=== PATIENT | male | born 1945 | race Caucasian/White ===

== ENCOUNTER → 2016-08-29 | Day surgery (SDC) | payer MEDICARE, BC ==
[~2016-08-29] MED LIST: Lactated Ringers 1,000 ML IV SCH; Midazolam 1 MG/ML 2 ML SDV ONE; Propofol 200 MG/20 ML SDV ONE; fentaNYL 100 MCG/2 ML SDV ONE
[2016-08-29 11:13] VITALS: BP 141/68
--- NOTE | 2016-08-31 10:20 | OR ---
DATE OF PROCEDURE: 08/29/2016 PREOPERATIVE DIAGNOSIS: Colon cancer screening. POSTOPERATIVE DIAGNOSIS: Diverticulosis. PROCEDURE: Colonoscopy to the cecum. ANESTHESIA: IV anesthesia with monitored anesthesia care. INDICATIONS: This 71-year-old white male is referred for a colonoscopy for colon cancer screening. He says his last colonoscopic exam was done ten years ago. I counseled him for the procedure including risks and alternatives, and he gave his informed consent to proceed. DESCRIPTION OF OPERATION: The patient was placed in the left lateral decubitus position. IV anesthesia was administered by the Anesthesia Service. Time-out was held. A rectal exam was performed, which was unremarkable. The flexible video Olympus colonoscope was introduced through his anus, up his rectum, and out his colon all way to the cecum. En route, we saw a few scattered left-sided diverticula. There was no bleeding or inflammation associated with them. Once the cecum was reached, the scope was slowly withdrawn, examining the mucosa throughout. No additional mucosal abnormalities were noted. The scope was retroflexed in the rectum with the distal rectum being unremarkable. The scope was straightened and removed. He tolerated the procedure well. Ismael López MD /[id number] [facility]
== END ==
LOC: JP.SDS 08:00
PROVIDERS: ATTEND Surgery
DX: Z12.11 Encounter for screening for malignant neoplasm of colon (principal); K57.30 Diverticulosis of large intestine without perforation or abscess without bleeding; K21.9 Gastro-esophageal reflux disease without esophagitis; I10 Essential (primary) hypertension; E78.00 Pure hypercholesterolemia, unspecified; E11.9 Type 2 diabetes mellitus without complications; Z79.899 Other long term (current) drug therapy; Z88.8 Allergy status to other drugs, medicaments and biological substances; Z98.890 Other specified postprocedural states; Z98.52 Vasectomy status; D64.9 Anemia, unspecified
CPT/HCPCS: G0121; J2250; J2704; J3010; J7120

== ENCOUNTER 2023-03-08 11:35 | Emergency (ER) | payer MEDICARE ==
[2023-03-08 13:12] LABS: APPEARANCE,URINE SLIGHTLY CLOUDY (CLEAR); BILIRUBIN,URINE NEGATIVE (NEGATIVE); COLOR,URINE YELLOW (YELLOW); GLUCOSE,URINE 250 mg/dL (NEGATIVE); KETONES,URINE 15 mg/dL (NEGATIVE); LEUKOCYTE ESTERASE,URINE NEGATIVE (NEGATIVE); NITRITE,URINE NEGATIVE (NEGATIVE); OCCULT BLOOD,URINE MODERATE (NEGATIVE); PROTEIN,URINE 30 mg/dL (NEGATIVE); UROBILINOGEN,URINE 0.2 EU/dL (0.2-1.0)
[2023-03-08 13:15] LABS: AMORPHOUS SEDIMENT,URINE FEW; BACTERIA,URINE RARE; EPITHELIAL CELLS,URINE RARE; MUCUS,URINE MODERATE; WBC,URINE 0-5 (0-5)
[2023-03-08] MEDS ORDERED: Sodium Chloride 0.9% 500 ML IV ONE (13:23)
[2023-03-08] MEDS ORDERED: Ketorolac 30 MG/ML SDV IVPUSH ONE (13:23)
[2023-03-08] MEDS ORDERED: Ondansetron 4 MG/2 ML SDV IVPUSH ONE (13:23)
[2023-03-08 13:45] LABS: BASOPHILS ABSOLUTE AUTO 0.04 K/uL (0.00-0.10); BASOPHILS PERCENT AUTO 0.3 % (0.1-1.3); EOSINOPHILS PERCENT AUTO 0.2 % (0.0-5.4); HEMOGLOBIN 14.8 g/dL (12.9-16.9); IMMATURE GRAN ABSOLUTE AUTO 0.05 K/uL (0.00-0.23); IMMATURE GRAN PERCENT AUTO 0.4 % (0.0-0.7); LYMPHOCYTES ABSOLUTE AUTO 0.97 K/uL (0.8-3.3); LYMPHOCYTES PERCENT AUTO 8.2 % (11.4-47.7); MEAN CORPUSCULAR HEMOGLOBIN 29.8 pg (31.6-35.5); MEAN CORPUSCULAR HGB CONC 34.4 g/dL (31.6-35.5); MEAN CORPUSCULAR VOLUME 86.7 fL (81.4-99.0); MONOCYTES ABSOLUTE AUTO 0.66 K/uL (0.20-0.90); MONOCYTES PERCENT AUTO 5.6 % (3.3-12.6); NEUTROPHILS ABSOLUTE AUTO 10.11 K/uL (1.0-7.6); NEUTROPHILS PERCENT AUTO 85.3 % (40.0-78.1); PLATELET COUNT,PLT 248 K/uL (130-375); RED BLOOD CELL COUNT 4.96 M/uL (4.14-5.76); WHITE BLOOD CELL COUNT,WBC 11.9 K/uL (3.2-11.0)
[2023-03-08 13:49] LABS: EOSINOPHILS ABSOLUTE AUTO 0.02 K/uL (0.00-0.40)
[2023-03-08 14:07] LABS: A/G RATIO 1.3 (1.2-2.2); ALANINE AMINOTRANSFERASE,ALT 19 U/L (12-78); ALBUMIN 3.8 g/dL (3.4-5.0); ALKALINE PHOSPHATASE 72 U/L (46-116); ANION GAP 11.8 mmol/L (5.0-14.0); ASPARTATE AMNIOTRANSFERASE,AST 23 U/L (15-37); BILIRUBIN TOTAL 0.9 mg/dL (0.2-1.0); BLOOD UREA NITROGEN,BUN 21 mg/dL (7-18); CALCIUM 9.4 mg/dL (8.5-10.1); CARBON DIOXIDE,CO2 28 mmol/L (21-32); CHLORIDE,CL 100 mmol/L (100-108); CREATININE 1.2 mg/dL (0.8-1.3); ESTIMATED GFR 62 mL/min (>60); GLUCOSE RANDOM 200 mg/dL (74-106); POTASSIUM,K 4.8 mmol/L (3.6-5.2); PROTEIN TOTAL,TP 6.8 g/dL (6.4-8.2); SODIUM,NA 135 mmol/L (140-148)
[2023-03-08 15:17] VITALS: BP 178/62; PULSE 58
== END 2023-03-08 16:18 | disposition home or self-care (01) ==
LOC: JP.ED 11:35
DX: N13.2 Hydronephrosis with renal and ureteral calculous obstruction (principal); E86.0 Dehydration; I10 Essential (primary) hypertension; E78.00 Pure hypercholesterolemia, unspecified; K21.9 Gastro-esophageal reflux disease without esophagitis; E11.9 Type 2 diabetes mellitus without complications; Z79.84 Long term (current) use of oral hypoglycemic drugs; Z79.899 Other long term (current) drug therapy; Z88.8 Allergy status to other drugs, medicaments and biological substances
CPT/HCPCS: 36415; 74176; 80053; 80307; 81001; 83605; 83690; 84145; 85025; 85610; 96361; 96374; 96375; 99284; J1885; J2405; J7030

== ENCOUNTER 2024-01-28 06:04 | Inpatient (IN) | payer MEDICARE ==
[2024-01-28 07:08] LABS: BASOPHILS ABSOLUTE AUTO 0.05 K/uL (0.00-0.10); BASOPHILS PERCENT AUTO 0.4 % (0.1-1.3); EOSINOPHILS ABSOLUTE AUTO 0.06 K/uL (0.00-0.40); EOSINOPHILS PERCENT AUTO 0.5 % (0.0-5.4); HEMATOCRIT 37.2 % (38.4-49.7); HEMOGLOBIN 12.7 g/dL (12.9-16.9); IMMATURE GRAN ABSOLUTE AUTO 0.05 K/uL (0.00-0.23); IMMATURE GRAN PERCENT AUTO 0.4 % (0.0-0.7); LYMPHOCYTES ABSOLUTE AUTO 0.67 K/uL (0.8-3.3); LYMPHOCYTES PERCENT AUTO 5.7 % (11.4-47.7); MEAN CORPUSCULAR HEMOGLOBIN 29.4 pg (31.6-35.5); MEAN CORPUSCULAR HGB CONC 34.1 g/dL (31.6-35.5); MEAN CORPUSCULAR VOLUME 86.1 fL (81.4-99.0); MONOCYTES ABSOLUTE AUTO 0.68 K/uL (0.20-0.90); MONOCYTES PERCENT AUTO 5.8 % (3.3-12.6); NEUTROPHILS ABSOLUTE AUTO 10.25 K/uL (1.0-7.6); NEUTROPHILS PERCENT AUTO 87.2 % (40.0-78.1); PLATELET COUNT,PLT 211 K/uL (130-375); RED BLOOD CELL COUNT 4.32 M/uL (4.14-5.76); WHITE BLOOD CELL COUNT,WBC 11.8 K/uL (3.2-11.0)
[2024-01-28] MEDS ORDERED: Naloxone 0.4 MG/ML SDV IVPUSH PRN (07:09)
[2024-01-28 07:23] LABS: CALCIUM 9.4 mg/dL (8.5-10.1); EST CRCL DRUG DOSING (CG) 56.92 mL/min; POTASSIUM,K 5.2 mmol/L (3.6-5.2); PROTHROMBIN TIME 9.9 sec (9.2-10.6)
[2024-01-28 07:24] LABS: ANION GAP 12.2 mmol/L (5.0-14.0)
[2024-01-28] MEDS: HYDROmorphone 0.5 MG/0.5 ML Syringe IVPUSH PRN (08:24)
[2024-01-28] MEDS ORDERED: Ondansetron 4 MG Tab.DIS PO PRN (13:42)
[2024-01-28] MEDS ORDERED: Sennosides/Docusate Sodium 50-8.6 MG Tab PO PRN (13:42)
[2024-01-28] MEDS ORDERED: Magnesium Hydroxide 400 MG/5 ML Susp 30 ML Cup PO PRN (13:42)
[2024-01-28] MEDS ORDERED: Acetaminophen 325 MG Tab PO PRN (13:42)
[2024-01-28] MEDS ORDERED: Ondansetron 4 MG/2 ML SDV IV PRN (13:42)
[2024-01-28] MEDS: traMADol 50 MG Tab PO PRN (15:00)
[2024-01-28] MEDS ORDERED: Non-Formulary Medication 1 Each (Metformin Hcl [Metformin Hcl Er] 500 MG Tab.Sr.24h) PO SCH (16:30)
[2024-01-28] MEDS: metFORMIN 500 MG Tab PO SCH (16:46)
[2024-01-28] MEDS: Tamsulosin 0.4 MG Cap.ER PO SCH (16:46)
[2024-01-28] MEDS: HYDROmorphone 1 MG/ML Syringe IVPUSH PRN (16:48)
[2024-01-28] MEDS: Metoprolol Tartrate 25 MG Tab PO SCH (22:11)
[2024-01-29] MEDS ORDERED: ceFAZolin 2 GM in Premix Bag 1 BAG IV ONE (08:00)
[2024-01-29] MEDS ORDERED: fentaNYL 250 MCG/5 ML SDV ONE (09:36)
[2024-01-29] MEDS ORDERED: Ondansetron 4 MG/2 ML SDV ONE (09:37)
[2024-01-29] MEDS ORDERED: Rocuronium 50 MG/5 ML Vial ONE (09:37)
[2024-01-29] MEDS ORDERED: Dexamethasone 4 MG/ML SDV ONE (09:37)
[2024-01-29] MEDS ORDERED: Neostigmine Methylsulfate 10 MG/10 ML MDV ONE (09:37)
[2024-01-29] MEDS ORDERED: Glycopyrrolate 0.2 MG/ML 5 ML MDV ONE (09:37)
[2024-01-29] MEDS ORDERED: Propofol 200 MG/20 ML SDV ONE (09:37)
[2024-01-29] MEDS: ceFAZolin 2 GM in Water For Injection, Sterile 20 ML IV ONE (09:50)
[2024-01-29] MEDS: Bupivacaine 0.5% 50 ML MDV ONE (10:28)
[2024-01-29] MEDS: Morphine 2 MG/ML SYRINGE IVPUSH ONE (11:13)
[2024-01-29] MEDS: Acetaminophen 325 MG Tab PO SCH (11:50)
[2024-01-29] MEDS: oxyCODONE 5 MG Tab PO PRN (11:50)
[2024-01-29] MEDS: glipiZIDE 5 MG Tab PO SCH (17:15)
[2024-01-29] MEDS: Aspirin 325 MG Tab.EC PO SCH (20:59)
[2024-01-30 04:51] LABS: HEMATOCRIT 36.3 % (38.4-49.7); HEMOGLOBIN 12.6 g/dL (12.9-16.9); MEAN CORPUSCULAR HEMOGLOBIN 29.6 pg (31.6-35.5); MEAN CORPUSCULAR HGB CONC 34.7 g/dL (31.6-35.5); MEAN CORPUSCULAR VOLUME 85.2 fL (81.4-99.0); RED BLOOD CELL COUNT 4.26 M/uL (4.14-5.76); WHITE BLOOD CELL COUNT,WBC 11.8 K/uL (3.2-11.0)
[2024-01-30 05:08] LABS: CALCIUM 9.2 mg/dL (8.5-10.1); EST CRCL DRUG DOSING (CG) 58.9 mL/min; POTASSIUM,K 5.3 mmol/L (3.6-5.2)
[2024-01-30 05:12] LABS: ANION GAP 13.3 mmol/L (5.0-14.0)
[2024-01-31] MEDS: HYDROmorphone 0.5 MG/0.5 ML Syringe IVPUSH PRN (16:07)
[2024-01-31] MEDS: traMADol 50 MG Tab PO PRN (21:38)
[2024-02-01] MEDS ORDERED: Sodium Chloride 0.9% 10 ML Syringe IV PRN (10:56)
[2024-02-01 11:50] VITALS: BP 164/67; PULSE 61
== END 2024-02-01 14:30 | disposition home or self-care (01) | DRG 482 ==
LOC: JP.ED 06:04 → JP.MS 12:06
PROVIDERS: ADMIT Internal Medicine; ATTEND Internal Medicine
PROC: 0QH734Z Insertion of Internal Fixation Device into Left Upper Femur, Percutaneous Approach (ICD-10-PCS; principal; 2024-01-29 09:00)
DX: S72.002A Fracture of unspecified part of neck of left femur, initial encounter for closed fracture (principal); K59.09 Other constipation; E78.00 Pure hypercholesterolemia, unspecified; I10 Essential (primary) hypertension; K21.9 Gastro-esophageal reflux disease without esophagitis; H91.90 Unspecified hearing loss, unspecified ear; H54.7 Unspecified visual loss; Z91.048 Other nonmedicinal substance allergy status; W01.0XXA Fall on same level from slipping, tripping and stumbling without subsequent striking against object, initial encounter; M19.90 Unspecified osteoarthritis, unspecified site; E11.9 Type 2 diabetes mellitus without complications; N40.0 Benign prostatic hyperplasia without lower urinary tract symptoms; W19.XXXA Unspecified fall, initial encounter; R33.9 Retention of urine, unspecified; Z88.8 Allergy status to other drugs, medicaments and biological substances; Z79.899 Other long term (current) drug therapy; Z79.84 Long term (current) use of oral hypoglycemic drugs; Z87.442 Personal history of urinary calculi; Z87.81 Personal history of (healed) traumatic fracture; Z98.890 Other specified postprocedural states; Z98.1 Arthrodesis status
CPT/HCPCS: 36415; 73502 ×2; 80048; 85025; 85610; 99285; J1171; 01230-QZ; 51702; 76000; 82947; 85027; 93005; 93010; 97110-GP; 97116-GP; 97161-GP; 97530-GP; 99222; 99231; 99232; 99239; A9270-GY; C1713; C1769; J0665; J0690; J1100; J1596; J2270; J2405; J2704; J2710; J3010; J3490

== ENCOUNTER 2024-09-26 08:55 | Inpatient (IN) | payer MEDICARE ==
[~2024-09-26 08:55] MED LIST changes: -Lactated Ringers 1,000 ML IV SCH
[2024-09-26 09:50] LABS: PLATELET COUNT,PLT 264.0 K/uL (130-375); RED BLOOD CELL COUNT 4.58 M/uL (4.14-5.76); WHITE BLOOD CELL COUNT,WBC 7.5 K/uL (3.2-11.0)
[2024-09-26] MEDS: Nozin Nasal Sanitizer NASBOTH SCH ×2 (09:57→21:57)
[2024-09-26 10:13] LABS: A/G RATIO 1.2 (1.2-2.2); ALANINE AMINOTRANSFERASE,ALT 26 U/L (12-78); ASPARTATE AMNIOTRANSFERASE,AST 24 U/L (15-37); BILIRUBIN TOTAL 0.8 mg/dL (0.2-1.0); BLOOD UREA NITROGEN,BUN 18 mg/dL (7-18); CARBON DIOXIDE,CO2 30 mmol/L (21-32); CHLORIDE,CL 100 mmol/L (100-108); CREATININE 0.9 mg/dL (0.8-1.3); EST CRCL DRUG DOSING (CG) 62.22 mL/min; ESTIMATED GFR 87 mL/min (>60); GLUCOSE RANDOM 167 mg/dL (74-106); POTASSIUM,K 4.5 mmol/L (3.6-5.2); PROTEIN TOTAL,TP 6.5 g/dL (6.4-8.2); SODIUM,NA 136 mmol/L (140-148)
[2024-09-26] MEDS: Lactated Ringers 1,000 ML IV SCH (10:14)
[2024-09-26] MEDS ORDERED: Dexamethasone 4 MG/ML SDV ONE (13:27)
[2024-09-26] MEDS ORDERED: Ondansetron 4 MG/2 ML SDV ONE (13:27)
[2024-09-26] MEDS ORDERED: Succinylcholine 200 MG/10 ML MDV ONE (13:27)
[2024-09-26] MEDS ORDERED: Glycopyrrolate 0.2 MG/ML 5 ML MDV ONE (13:27)
[2024-09-26] MEDS ORDERED: Lactated Ringers 1,000 ML ONE (13:46)
[2024-09-26] MEDS ORDERED: fentaNYL 250 MCG/5 ML SDV ONE (13:48)
[2024-09-26] MEDS ORDERED: fentaNYL 100 MCG/2 ML SDV ONE (14:41)
[2024-09-26] MEDS ORDERED: Nitroglycerin 0.4 MG Tab.SL SL PRN (15:25)
[2024-09-26] MEDS: fentaNYL 50 MCG/ML SDV IVPUSH ONE (15:26)
[2024-09-26] MEDS ORDERED: Ketorolac 30 MG/ML SDV IVPUSH SCH (15:30)
[2024-09-26] MEDS: Ketorolac 15 MG/ML SDV IVPUSH SCH (18:45)
[2024-09-26] MEDS ORDERED: Non-Formulary Medication 1 Each (Metformin Hcl [Metformin Hcl Er] 500 MG Tab.Sr.24h) PO SCH (21:00)
[2024-09-27] MEDS: Aspirin 325 MG Tab.EC PO SCH (08:58)
[2024-09-27] MEDS ORDERED: Fluticasone NASAL Spray 16 GM Bottle NAS PRN (09:00)
[2024-09-28 09:30] VITALS: PULSE 88
[2024-09-28 11:25] VITALS: BP 140/58
== END 2024-09-28 12:40 | disposition home or self-care (01) | DRG 468 ==
LOC: JP.SDS 08:55 → JP.MS 15:18 → JP.SDS 09-28 08:12 → JP.MS 09-28 08:13
PROVIDERS: ADMIT Specialist; ATTEND Specialist
PROC: 0SPB0JZ Removal of Synthetic Substitute from Left Hip Joint, Open Approach (ICD-10-PCS; 2024-09-26)
PROC: 0SRB0JA Replacement of Left Hip Joint with Synthetic Substitute, Uncemented, Open Approach (ICD-10-PCS; principal; 2024-09-26 10:00)
DX: S72.002P Fracture of unspecified part of neck of left femur, subsequent encounter for closed fracture with malunion (principal); T84.84XD Pain due to internal orthopedic prosthetic devices, implants and grafts, subsequent encounter; E11.42 Type 2 diabetes mellitus with diabetic polyneuropathy; F12.90 Cannabis use, unspecified, uncomplicated; G25.81 Restless legs syndrome; I25.10 Atherosclerotic heart disease of native coronary artery without angina pectoris; E78.5 Hyperlipidemia, unspecified; D50.9 Iron deficiency anemia, unspecified; I10 Essential (primary) hypertension; H91.90 Unspecified hearing loss, unspecified ear; Z98.890 Other specified postprocedural states; Z98.49 Cataract extraction status, unspecified eye
CPT/HCPCS: 01230-QZ; 36415; 51701; 51798; 72170; 72170-26; 80053; 85027; 97110-GP; 97116-GP; 97161-GP; 97165-GO; A9270-GY; C1758; C1776; J0330; J0665; J0690; J1100; J1596; J1885; J2250; J2405; J2704; J2710; J3010; J3490; J7030; J7120

== ENCOUNTER 2024-11-15 08:33 | Emergency (ER) | payer MEDICARE ==
[2024-11-15 08:44] VITALS: PULSE 67
[2024-11-15 08:56] LABS: BASOPHILS ABSOLUTE AUTO 0.04 K/uL (0.00-0.10); BASOPHILS PERCENT AUTO 0.5 % (0.1-1.3); EOSINOPHILS ABSOLUTE AUTO 0.16 K/uL (0.00-0.40); EOSINOPHILS PERCENT AUTO 1.9 % (0.0-5.4); IMMATURE GRAN ABSOLUTE AUTO 0.07 K/uL (0.00-0.23); IMMATURE GRAN PERCENT AUTO 0.8 % (0.0-0.7); LYMPHOCYTES ABSOLUTE AUTO 0.93 K/uL (0.8-3.3); LYMPHOCYTES PERCENT AUTO 11.2 % (11.4-47.7); MONOCYTES ABSOLUTE AUTO 0.79 K/uL (0.20-0.90); MONOCYTES PERCENT AUTO 9.5 % (3.3-12.6); NEUTROPHILS ABSOLUTE AUTO 6.30 K/uL (1.0-7.6); NEUTROPHILS PERCENT AUTO 76.1 % (40.0-78.1); PLATELET COUNT,PLT 414 K/uL (130-375); RED BLOOD CELL COUNT 2.81 M/uL (4.14-5.76); WHITE BLOOD CELL COUNT,WBC 8.3 K/uL (3.2-11.0)
[2024-11-15 09:15] LABS: INR 1.1
[2024-11-15 09:18] LABS: A/G RATIO 0.8 (1.2-2.2); ALANINE AMINOTRANSFERASE,ALT 20 U/L (12-78); ASPARTATE AMNIOTRANSFERASE,AST 21 U/L (15-37); BILIRUBIN TOTAL 0.5 mg/dL (0.2-1.0); BLOOD UREA NITROGEN,BUN 17 mg/dL (7-18); CARBON DIOXIDE,CO2 29 mmol/L (21-32); CHLORIDE,CL 99 mmol/L (100-108); CREATININE 0.8 mg/dL (0.8-1.3); EST CRCL DRUG DOSING (CG) 70.00 mL/min; ESTIMATED GFR 90 mL/min (>60); GLUCOSE RANDOM 192 mg/dL (74-106); POTASSIUM,K 4.5 mmol/L (3.6-5.2); PROTEIN TOTAL,TP 5.9 g/dL (6.4-8.2); SODIUM,NA 133 mmol/L (140-148)
[2024-11-15 09:20] LABS: TROPONIN I HIGH SENSITIVITY 128.7 pg/mL (<=60.3)
[2024-11-15] MEDS: Iopamidol 612 MG/ML 100 ML Bottle IV SCH (10:35)
[2024-11-15] MEDS: Sodium Chloride 0.9% 10 ML Syringe FLUSH ONE (10:35)
[2024-11-15 11:39] VITALS: BP 145/63
== END 2024-11-15 12:18 | disposition home or self-care (01) ==
LOC: JP.ED 08:33
DX: R07.9 Chest pain, unspecified (principal); I10 Essential (primary) hypertension; E78.00 Pure hypercholesterolemia, unspecified; E11.9 Type 2 diabetes mellitus without complications; Z88.8 Allergy status to other drugs, medicaments and biological substances; Z79.899 Other long term (current) drug therapy
CPT/HCPCS: 36415; 71046; 71275; 80053; 84484; 85014; 85018; 85025; 85610; 86140; 93005; 99285; Q9967; 93010; 99284

== ENCOUNTER 2024-12-08 18:52 | Emergency (ER) | payer MEDICARE ==
[2024-12-08 19:04] LABS: BASOPHILS ABSOLUTE AUTO 0.05 K/uL (0.00-0.10); BASOPHILS PERCENT AUTO 0.7 % (0.1-1.3); EOSINOPHILS ABSOLUTE AUTO 0.33 K/uL (0.00-0.40); EOSINOPHILS PERCENT AUTO 4.6 % (0.0-5.4); IMMATURE GRAN ABSOLUTE AUTO 0.02 K/uL (0.00-0.23); IMMATURE GRAN PERCENT AUTO 0.3 % (0.0-0.7); LYMPHOCYTES ABSOLUTE AUTO 1.51 K/uL (0.8-3.3); LYMPHOCYTES PERCENT AUTO 20.9 % (11.4-47.7); MONOCYTES ABSOLUTE AUTO 0.78 K/uL (0.20-0.90); MONOCYTES PERCENT AUTO 10.8 % (3.3-12.6); NEUTROPHILS ABSOLUTE AUTO 4.55 K/uL (1.0-7.6); NEUTROPHILS PERCENT AUTO 62.7 % (40.0-78.1); PLATELET COUNT,PLT 324 K/uL (130-375); RED BLOOD CELL COUNT 3.05 M/uL (4.14-5.76); WHITE BLOOD CELL COUNT,WBC 7.2 K/uL (3.2-11.0)
[2024-12-08 19:22] LABS: A/G RATIO 1.0 (1.2-2.2); ALANINE AMINOTRANSFERASE,ALT 20 U/L (12-78); ASPARTATE AMNIOTRANSFERASE,AST 22 U/L (15-37); BILIRUBIN TOTAL 0.3 mg/dL (0.2-1.0); BLOOD UREA NITROGEN,BUN 22 mg/dL (7-18); CARBON DIOXIDE,CO2 30 mmol/L (21-32); CHLORIDE,CL 102 mmol/L (100-108); CREATININE 0.7 mg/dL (0.8-1.3); EST CRCL DRUG DOSING (CG) 80.00 mL/min; ESTIMATED GFR 94 mL/min (>60); GLUCOSE RANDOM 207 mg/dL (74-106); POTASSIUM,K 3.9 mmol/L (3.6-5.2); PROTEIN TOTAL,TP 6.3 g/dL (6.4-8.2); SODIUM,NA 135 mmol/L (140-148); TROPONIN I HIGH SENSITIVITY 20.7 pg/mL (<=60.3)
[2024-12-08 21:18] VITALS: BP 138/68; PULSE 64
== END 2024-12-08 21:48 | disposition home or self-care (01) ==
LOC: JP.ED 18:52
DX: R07.89 Other chest pain (principal); S72.009A Fracture of unspecified part of neck of unspecified femur, initial encounter for closed fracture; I10 Essential (primary) hypertension; E78.00 Pure hypercholesterolemia, unspecified; I25.2 Old myocardial infarction; K21.9 Gastro-esophageal reflux disease without esophagitis; E11.9 Type 2 diabetes mellitus without complications; Z95.1 Presence of aortocoronary bypass graft; Z79.899 Other long term (current) drug therapy; Z79.84 Long term (current) use of oral hypoglycemic drugs; Z88.8 Allergy status to other drugs, medicaments and biological substances; X58.XXXA Exposure to other specified factors, initial encounter
CPT/HCPCS: 36415; 71046; 71046-26; 80053; 84484; 85025; 86140; 93005; 99285